=== PATIENT | female | born 1955 | race Caucasian/White ===

== ENCOUNTER 2019-05-07 08:25 | Day surgery (SDC) | payer OTHER ==
[2019-05-04 14:32] VITALS: BMI 30.6
[2019-05-07 10:02] VITALS: TEMP 97.5
[2019-05-07 10:21] VITALS: PULSE 54
[2019-05-07 11:41] VITALS: BP 129/50
--- NOTE | 2019-05-08 20:32 | PATH ---
Surgical Pathology Report Patient Name: WM SAMANO [facility]. Rec. #: [id number] /Age/Gender: 1955 (Age: 64) / F Account: [id number] Location: U-ENDOSCOPY Taken: 05/07/2019 Received: 05/07/2019 Reported: 05/08/2019 Physicians: Eric Chen M.D. Specimen(s) Received A: CECAL POLYP B: SIGMOID POLYP Clinical History Screening, personal history of colon polyps Postoperative diagnosis: Diverticulosis, colon polyps Final Diagnosis A. CECAL POLYP, POLYPECTOMY: POLYPOID COLONIC MUCOSA WITH PROMINENT LYMPHOID AGGREGATE AND SUPERFICIAL HYPERPLASTIC FEATURES. SMALL FRAGMENT OF ORGANIC MATERIAL NOTED. B. SIGMOID COLON, POLYP, BIOPSY: TUBULAR ADENOMA. Electronically Signed Flavia Ramirez M.D. Gross Description A. Received in formalin, labeled "cecal polyp" is a love, irregular portion of soft tissue measuring 0.7 cm. in greatest dimension. The specimen is submitted in toto in one cassette. B. Received in formalin, labeled "biopsy polyp sigmoid colon" are 2 love, irregular portions of soft tissue averaging 0.3 cm. in greatest dimension. The specimens are submitted in toto in one cassette. DL/05/07/201905/07/2019
== END 2019-05-07 10:50 | disposition home or self-care (01) ==
LOC: JASU-ENDO 08:25
PROVIDERS: ATTEND Internal Medicine Gastroenterology
PROC: 0DBN8ZX Excision of Sigmoid Colon, Via Natural or Artificial Opening Endoscopic, Diagnostic (ICD-10-PCS; 2019-05-07)
PROC: 0DBC8ZX Excision of Ileocecal Valve, Via Natural or Artificial Opening Endoscopic, Diagnostic (ICD-10-PCS; principal; 2019-05-07 10:00)
DX: Z12.11 Encounter for screening for malignant neoplasm of colon (principal); Z86.010 Personal history of colon polyps; D12.5 Benign neoplasm of sigmoid colon; K64.8 Other hemorrhoids; K57.30 Diverticulosis of large intestine without perforation or abscess without bleeding
CPT/HCPCS: 88305-TC

== ENCOUNTER → 2019-07-25 | Day surgery (SDC) | payer OTHER ==
--- NOTE | 2019-07-31 09:26 | PATH ---
Cytology Non-Gynecological Report Patient Name: WM SAMANO Med. Rec. #: [id number] /Age/Gender: 1955 (Age: 64) / F Account: [id number] Location: RADIOLOGY INTER Taken: 07/25/2019 Received: 07/25/2019 Reported: 07/31/2019 Physicians: Feroz Mar M.D. Specimen(s) Received RIGHT THYROID FNA Clinical History Right thyroid lobe nodule Final Diagnosis THYROID, RIGHT, FINE NEEDLE ASPIRATION: UNSATISFACTORY FOR EVALUATION B[place]ES[place] CLASS I: CYSTIC THYROID LESION WITH MACROPHAGES. MACROPHAGES, COLLOID, AND RARE FOLLICULAR CELLS PRESENT. SUGGEST CLINICAL CORRELATION. Electronically Signed Nikky Palencia M.D. Gross Description Received are eight direct smears, four of which are air-dried and Diff-Quik stained, and four of which are alcohol fixed and Pap stained. Also received is 20 ml of bloody formalin from which one cellblock is prepared.
== END | disposition home or self-care (01) ==
LOC: JRADIR 08:47
PROVIDERS: ATTEND Specialist
PROC: 0G9H3ZX Drainage of Right Thyroid Gland Lobe, Percutaneous Approach, Diagnostic (ICD-10-PCS; principal; 2019-07-25)
DX: E04.1 Nontoxic single thyroid nodule (principal)
CPT/HCPCS: 76942; 88173; 88305-TC

== ENCOUNTER 2022-09-03 04:16 | Day surgery (SDC) | payer OTHER ==
[2022-09-01 12:12] VITALS: BMI 30.4
[2022-09-03 10:17] VITALS: TEMP 97.7
[2022-09-03 15:32] VITALS: BP 116/54; PULSE 58; RESP 17
== END 2022-09-03 11:05 | disposition home or self-care (01) ==
LOC: JASU-ENDO 04:16
PROVIDERS: ATTEND Internal Medicine Gastroenterology
PROC: 0DBL8ZX Excision of Transverse Colon, Via Natural or Artificial Opening Endoscopic, Diagnostic (ICD-10-PCS; 2022-09-03)
PROC: 0DBH8ZX Excision of Cecum, Via Natural or Artificial Opening Endoscopic, Diagnostic (ICD-10-PCS; 2022-09-03)
PROC: 0DBK8ZX Excision of Ascending Colon, Via Natural or Artificial Opening Endoscopic, Diagnostic (ICD-10-PCS; principal; 2022-09-03 10:00)
DX: Z12.11 Encounter for screening for malignant neoplasm of colon (principal); Z86.010 Personal history of colon polyps; Z80.0 Family history of malignant neoplasm of digestive organs; D12.0 Benign neoplasm of cecum; D12.4 Benign neoplasm of descending colon; D12.3 Benign neoplasm of transverse colon
CPT/HCPCS: 88305-TC